=== PATIENT | female | born 1960 | race Caucasian/White ===

== ENCOUNTER 2021-01-30 22:55 | Emergency (ER) | payer MEDICARE, MEDICAID ==
[~2021-01-30] VITALS: Ht 165.1 cm; Wt 49.9 kg
[~2021-01-30 22:55] MED LIST: IBUP800T27 PO; MIRT-68 PO; NOR10T; PERCOCET; [UNRECOGNIZED DRUG - CODE]
[2021-01-31 02:48] LABS: Basophils # (auto) 0 10 ^3/uL (0-0.2); Basophils % (auto) 0.9 % (0.0-2.0); Eosinophils # (auto) 0.1 10 ^3/uL (0-0.8); Eosinophils % (auto) 3.3 % (0.0-7.0); Hematocrit 29.6 % (36.0-46.0); Hemoglobin 9.9 g/dL (12.2-16.2); Lymphocytes # (auto) 0.7 10 ^3/uL (0.4-5.4); Lymphocytes % (auto) 16.5 % (10.0-50.0); Mean Corpuscular Hemoglobin 30.8 pg (28.0-32.0); Mean Corpuscular Hgb Conc. 33.3 g/dL (32.0-36.0); Mean Corpuscular Volume 92.3 fL (80.0-100.0); Monocytes # (auto) 0.3 10 ^3/uL (0-1.3); Monocytes % (auto) 7.5 % (0.0-12.0); Neutrophils # (auto) 3.2 10 ^3/uL (1.6-8.6); Neutrophils % (auto) 71.8 % (37.0-80.0); Red Cell Distribution Width 14.7 % (11.8-14.3); White Blood Cell 4.5 10^3/uL (4.4-10.8)
[2021-01-31 03:09] LABS: Alanine Aminotransferase 19 U/L (13-56); Anion Gap 4 (5-15); Aspartate Aminotransferase 20 U/L (15-37); Blood Urea Nitrogen 19 mg/dL (7-18); Calcium 7.7 mg/dL (8.5-10.1); Carbon Dioxide 28 mmol/L (21-32); Chloride 113 mmol/L (98-107); GFR African American 99 mL/min; GFR Non-African American 82 mL/min; Glucose 91 mg/dL (74-106); Potassium 4.1 mmol/L (3.5-5.1); Sodium 145 mmol/L (136-145)
[2021-01-31 03:19] LABS: Alkaline Phosphatase 81 U/L (45-117); Bilirubin, Total 0.2 mg/dL (0.2-1.0)
[2021-01-31 05:03] LABS: Alcohol, Urine < 3.0 mg/dL (0-10); Amphetamine Screen, Urine POSITIVE (NEGATIVE); Barbiturate Scree,Urine NEGATIVE (NEGATIVE); Benzodiazephine Screen, Urine NEGATIVE (NEGATIVE); Cannabinoid Screen, Urine POSITIVE (NEGATIVE); Cocaine Screen, Urine NEGATIVE (NEGATIVE); Phencyclidine Screen, Urine NEGATIVE (NEGATIVE)
[2021-01-31 05:14] LABS: Opiate Scree,Urine POSITIVE (NEGATIVE)
[2021-01-31 05:47] LABS: Urine Bacteria NONE SEEN /hpf (None Seen); Urine Blood Negative /uL (Negative); Urine Hyaline Cast FEW /lpf (0 - 2); Urine Mucus FEW (None Seen); Urine Specific Gravity 1.024 (1.001-1.035); Urine WBC 16 /hpf (0 - 5)
[2021-01-31 06:00] VITALS: BP 91/40
== END 2021-01-31 16:37 | disposition left against medical advice (07) ==
LOC: ER 22:59
DX: T40.0X1A Poisoning by opium, accidental (unintentional), initial encounter (principal); R41.82 Altered mental status, unspecified; F17.210 Nicotine dependence, cigarettes, uncomplicated; F12.10 Cannabis abuse, uncomplicated; G92 Toxic encephalopathy; Y92.9 Unspecified place or not applicable
CPT/HCPCS: 36415; 70450; 71045; 72125; 80053; 80307; 80320; 81001; 83605; 83735; 84484; 85025; 87040; 99285; J7030